=== PATIENT | female | born 1980 | race African-American/Black ===

== ENCOUNTER 2016-07-01 01:32 | Emergency (ER) | payer OTHER | END 2016-07-01 04:14 | disposition home or self-care (01) | LOC: FER 01:32 | DX: T14.8 Other injury of unspecified body region (principal); M25.512 Pain in left shoulder; M25.522 Pain in left elbow; Z88.1 Allergy status to other antibiotic agents; Z88.8 Allergy status to other drugs, medicaments and biological substances; V49.50XA Passenger injured in collision with unspecified motor vehicles in traffic accident, initial encounter; Y92.410 Unspecified street and highway as the place of occurrence of the external cause | CPT/HCPCS: J1885 ==